=== PATIENT | male | born 1945 | race Caucasian/White ===

== ENCOUNTER 2020-08-07 17:30 | Inpatient (IN) | payer OTHER ==
[~2020-08-07] VITALS: Ht 165.1 cm; Wt 91.2 kg
--- NOTE | 2020-08-07 17:45 | NUR ---
FOUND ON GROUND AT HOME BY [employer] DURING WELLNESS CHECK. PATIENT A/OX4, BREATHING EVEN AND UNLABORED. NO SOB NOTED, NEEDS ATTENDED. KEPT COMFORTABLE. ATTACHED TO THE BULK FOLDER.
[2020-08-07 19:00] LABS: BASOPHILS % (AUTO) 0.1 % (0.0-2.0); EOSINOPHILS % (AUTO) 0.6 % (0.0-6.0); HEMATOCRIT 41 % (39-51); HEMOGLOBIN 12.8 g/dL (13.5-17.5); LYMPHOCYTES # (AUTO) 1.8 /CMM (0.8-4.8); LYMPHOCYTES % (AUTO) 8.4 % (20.0-44.0); MEAN CORPUSCULAR HGB CONC 32 g/dl (31.0-36.0); MEAN CORPUSCULAR VOLUME 90 fL (80-96); MONOCYTES # (AUTO) 0.7 /CMM (0.1-1.30); MONOCYTES % (AUTO) 3.2 % (2.0-12.0); NEUTROPHILS % (AUTO) 87.7 % (43.0-81.0); PLATELET COUNT (AUTO) 206 /CMM (150-450); RED BLOOD CELL COUNT(AUTO) 4.52 MIL/uL (4.5-6.0); WHITE BLOOD COUNT (AUTO) 21.7 K/uL (4.3-11.0)
[2020-08-07] MEDS ORDERED: ACET-868 PO (19:08)
[2020-08-07] MEDS ORDERED: LORA-258 PO (19:08)
[2020-08-07] MEDS ORDERED: ASPI-1169 PO (19:08)
[2020-08-07] MEDS ORDERED: ATOR40TA PO (19:08)
[2020-08-07] MEDS ORDERED: SERT100T12 PO (19:08)
[2020-08-07] MEDS ORDERED: LOSA100T31 PO (19:08)
[2020-08-07] MEDS ORDERED: ZOLP12.542 PO (19:08)
[2020-08-07 19:54] LABS: CALCIUM, SERUM 8.7 mg/dL (8.5-10.1); POTASSIUM 3.3 mmol/L (3.5-5.1)
[2020-08-07 19:58] LABS: ALCOHOL, BLOOD < 3 mg/dL (0-0); MAGNESIUM 2.2 mg/dL (1.8-2.4)
[2020-08-07 19:59] LABS: ALBUMIN 2.9 g/dL (3.4-5.0); BILIRUBIN,DIRECT 0.3 mg/dL (0.0-0.2); TOTAL PROTEIN, SERUM 7.3 g/dL (6.4-8.2)
[2020-08-07 20:02] LABS: CREATINE KINASE, TOTAL 988 U/L (39-308)
--- NOTE | 2020-08-07 20:07 | NUR ---
CALL FROM LAB, RAPID COVID NEGATIVE.
[2020-08-07] MEDS ORDERED: PIPERACILLIN /TAZOBACTAM 3.375 G in IV D5W 50 ML IV ONE (20:30)
[2020-08-07] MEDS ORDERED: IV NS 0.9% 1,000 ML IV ONE (20:30)
[2020-08-07] MEDS ORDERED: PANTOPRAZOLE 40 MG VIAL IV ONE (21:00)
[2020-08-07] MEDS ORDERED: ASPIRIN 325 MG TABLET PO ONE (21:00)
[2020-08-07] MEDS ORDERED: ENOXAPARIN SODIUM 30 MG/0.3 ML DISP.SYRIN SQ ONE (21:00)
[2020-08-07] MEDS ORDERED: ASPIRIN 325 MG TABLET ONE (21:26)
[2020-08-07] MEDS ORDERED: PANTOPRAZOLE 40 MG VIAL ONE (21:26)
[2020-08-07] MEDS ORDERED: POTASSIUM CL. PREMIX PERIPHER. 100 ML ONE (21:26)
[2020-08-07] MEDS ORDERED: ENOXAPARIN SODIUM 100 MG/ML DISP.SYRIN SQ ONE (21:26)
[2020-08-07] MEDS: POTASSIUM CL. PREMIX PERIPHER. 50 ML IV SCH ×2 (21:43→22:45)
[2020-08-07] MEDS ORDERED: PIPERACILLIN /TAZOBACTAM 3.375 G VIAL IV ONE (21:50)
[2020-08-07] MEDS ORDERED: LORAZEPAM 0.5 MG TABLET PO PRN (22:00)
[2020-08-07] MEDS ORDERED: ONDANSETRON HCL/PF 4 MG/2 ML VIAL IVP PRN (22:00)
[2020-08-07] MEDS ORDERED: Z GUARD REMEDY 2 OZ OINT TP PRN (22:00)
[2020-08-07] MEDS ORDERED: MAG HYDROX/AL HYDROX/SIMETH 30 ML UDC PO PRN (22:00)
[2020-08-07] MEDS ORDERED: MAGNESIUM HYDROXIDE 30 ML UDC PO PRN (22:00)
[2020-08-07] MEDS ORDERED: HYDROCODONE/APAP 5/325MG TABLET PO PRN (22:00)
--- NOTE | 2020-08-07 22:15 | NUR ---
MS RN NOTE: Received report from ACOUSTICAL ENGINEERLino MEDINA.
--- NOTE | 2020-08-07 22:16 | NUR ---
REPORT GIVEN TO CAROL DAVIS FOR JAZMIN PT WILL BE TRANSPORTED 3RD FLOOR
[2020-08-07 22:45] VITALS: BP 125/65
--- NOTE | 2020-08-07 22:45 | NUR ---
pt transported to 3rd floor
--- NOTE | 2020-08-07 22:45 | NUR ---
SPECIAL EDUCATION EDUCATIONAL ASSISTANT ADMITTING NOTE: Received patient in [facility] awake, alert, and oriented x4. Patient able to make needs known. Patient has generalized weakness. Noted right hip wound, right elbow wound, and upper extremity skin discoloration. Patient on room air and breathing well; no SOB or acute respiratory distress noted. IV access noted on left arm 20 gauge, dry and intact, patent, no redness or infiltration. Noted IV access on left AC, 20 gauge, dry and intact, patent, no redness or infiltration. Received patient with Potassium infusing. Safety precaution is in place, bed is in the lowest level, bed is locked, alarm is on, side rails x2 are up, and call light is within reach. Will continue to monitor.
[2020-08-07] MEDS: ATORVASTATIN 40 MG TABLET PO SCH (23:10)
[2020-08-07 23:28] VITALS: BP 125/65
[2020-08-08] VITALS: BP 128/68
[2020-08-08 00:27] LABS: APPEARANCE,URINE CLOUDY (CLEAR); BILIRUBIN,URINE SMALL (NEGATIVE); BLOOD, URINE LARGE Ery/uL (NEGATIVE); COLOR,URINE YELLOW (YELLOW); KETONES,URINE 15 (NEGATIVE); LEUKOCYTE ESTERASE ,URINE TRACE (NEGATIVE); NITRITE, URINE NEGATIVE (NEGATIVE); PH,URINE 8.5 (5.0-8.0); PROTEIN,URINE 30 mg/dl (NEGATIVE); UGLUCOSE NEGATIVE (NEGATIVE)
[2020-08-08] MEDS: TEMAZEPAM 15 MG CAPSULE PO PRN (00:31)
[2020-08-08] MEDS: ACETAMINOPHEN 325 MG TABLET PO PRN ×2 (00:31→21:20)
--- NOTE | 2020-08-08 00:31 | NUR ---
MS RN NOTE: Patient complains of generalized pain. Patient rates pain a 3 on a 0-10 scale and describes it as aching. Administered PRN Tylenol per MD order. Patient also complains of difficulty sleeping. Administered PRN Restoril per MD order. Will continue to monitor.
[2020-08-08 01:10] LABS: BACTERIA,URINE Many /HPF (None Seen); SQUAMOUS EPITHELIAL CELL,UR Moderate /HPF (None Seen)
[2020-08-08 01:11] LABS: TRIPLE PHOSPHATE CRYSTAL,UR Many /HPF (None Seen)
[2020-08-08 04:00] VITALS: BP 134/76
[2020-08-08] MEDS ORDERED: PIPERACILLIN /TAZOBACTAM 3.375 G VIAL IV ONE (04:53)
[2020-08-08] MEDS: IV NS 0.9% 1,000 ML IV PRN ×2 (04:56→21:34)
[2020-08-08] MEDS ORDERED: PIPERACILLIN /TAZOBACTAM 3.375 G in IV D5W 50 ML IV ONE (05:00)
[2020-08-08] MEDS ORDERED: PIPERACILLIN /TAZOBACTAM 3.375 G in IV D5W 50 ML IV SCH (05:00)
--- NOTE | 2020-08-08 06:40 | NUR ---
ESTIMATING MANAGER CLOSING NOTE: Patient in bed sleeping comfortably. All needs met. Patient breathing well with no SOB or respiratory distress. Safety precaution in place, bed is in the lowest level, alarm is on, brakes are on, side rails x2 are up, and call light is within reach. Will endorse to next shift.
[2020-08-08 06:45] LABS: BASOPHILS % (AUTO) 0.2 % (0.0-2.0); EOSINOPHILS % (AUTO) 0.7 % (0.0-6.0); HEMATOCRIT 35 % (39-51); HEMOGLOBIN 11.2 g/dL (13.5-17.5); LYMPHOCYTES # (AUTO) 0.9 /CMM (0.8-4.8); MEAN CORPUSCULAR HGB CONC 32 g/dl (31.0-36.0); MEAN CORPUSCULAR VOLUME 88 fL (80-96); MONOCYTES # (AUTO) 0.3 /CMM (0.1-1.30); MONOCYTES % (AUTO) 1.2 % (2.0-12.0); NEUTROPHILS # (AUTO) 20.8 /CMM (1.8-8.9); NEUTROPHILS % (AUTO) 93.9 % (43.0-81.0); PLATELET COUNT (AUTO) 218 /CMM (150-450); RED BLOOD CELL COUNT(AUTO) 3.92 MIL/uL (4.5-6.0); WHITE BLOOD COUNT (AUTO) 22.1 K/uL (4.3-11.0)
[2020-08-08 06:56] LABS: THYROID STIMULATING HORMONE 2.118 uIU/mL (0.358-3.74)
[2020-08-08 06:57] LABS: CALCIUM, SERUM 7.6 mg/dL (8.5-10.1); CREATININE 1.1 mg/dL (0.6-1.3); MAGNESIUM 2.1 mg/dL (1.8-2.4); PHOSPHORUS 2.3 mg/dL (2.5-4.9)
--- NOTE | 2020-08-08 07:50 | NUR ---
MS RN OPENING NOTES RECEIVED PATIENT RESTING IN BED, AWAKE, A/OX4 ON TELE MONITOR WITH SR W/PAC,PVC. ON RA WITH NO C/O SOB, NO ACUTE RESPIRATORY DISTRESS NOTED. C/O OF SLIGHT JORDAN. URINAL AT BEDSIDE. SKIN WITH MULTIPLE SKIN ABRASIONS, WOUND CONSULT ORDERED. IV TO LTAC AND LT ARM BOTH #20G RUNNING 0.9%NS @100ML/HR. BED AT LOWEST POSITION, LOCKED WITH SIDE RAILS UP X2 AND CALL LIGHT WITH IN REACH. WILL CONTINUE TO MONITOR PATIENT THROUGHOUT SHIFT.
[2020-08-08 08:00] VITALS: BP 108/60
[2020-08-08] MEDS: ASPIRIN 81 MG TAB.CHEW PO SCH (08:35)
[2020-08-08] MEDS: SERTRALINE HCL 50 MG TABLET PO SCH (08:37)
[2020-08-08] MEDS: LOSARTAN POTASSIUM 50 MG TABLET PO SCH (08:37)
[2020-08-08 08:40] LABS: EOSINOPHILS % (MANUAL) 1 % (0-4); LYMPHOCYTES % (MANUAL) 5 % (16-48); MONOCYTES % (MANUAL) 2 % (0-11.0); NEUTROPHILS % (MANUAL) 92 (42-76)
[2020-08-08] MEDS ORDERED: ENOXAPARIN SODIUM 100 MG/ML DISP.SYRIN SQ SCH (09:00)
[2020-08-08] MEDS: PIPERACILLIN /TAZOBACTAM 3.375 G in IV D5W 100 ML IV SCH ×2 (10:13→17:58)
[2020-08-08] MEDS: POTASSIUM CHLORIDE 20 MEQ TAB.PRT.SR PO SCH ×3 (10:13→12:07)
[2020-08-08] MEDS: NEUTRA PHOS 1 POWD.PACKET PO SCH ×2 (10:13→17:58)
[2020-08-08 16:00] VITALS: BP 115/59
--- NOTE | 2020-08-08 18:43 | NUR ---
FRESH WORK INSPECTOR CLOSING NOTES PATIENT RESTING IN BED, A/OX4 ON TELE MONITOR WITH SR W/PAC,PVC. ON RA WITH NO C/O SOB, NO ACUTE RESPIRATORY DISTRESS NOTED. IV TO LT AC AND LT ARM BOTH #20G RUNNING 0.9%NS @100ML/HR. BED AT LOWEST POSITION, LOCKED WITH SIDE RAILS UP X2 AND CALL LIGHT WITH IN REACH. PT AWAITING TRANSFER, WILL ENDORSE TO ONCOMING SHIFT.
--- NOTE | 2020-08-08 19:30 | NUR ---
Opening Notes: Report received from morning RN. Patient alert, awake, and oriented x4. Patient able to make needs known. No s/s of distress or discomfort. Patient on telemetry with sinus rhythm. Patient noted with right hip and right elbow laceration, left elbow scratch, and discoloration on bilateral upper extremities s/p fall at home. Patient denies any pain, no facial grimacing or moaning noted. 20:33 Spoke with Ruslan, Breastfeeding Program Coordinator from [facility] ([phone]). Per Ruslan, patient will be transferred to [facility] tomorrow and will call us back tomorrow to verify. Patient assisted with ADLs, kept clean, warm, and dry. Linens changed, good pericare provided. Fall precautions observed. Bed locked and in lowest position. Call light within easy reach.
[2020-08-08 20:00] VITALS: BP 112/64
--- NOTE | 2020-08-08 21:00 | NUR ---
RN NOTES PT. HAS TEMP OF 100.2- TYLENOL 650MG PO GIVEN ORDERED
[2020-08-08] MEDS: ATORVASTATIN 40 MG TABLET PO SCH (21:20)
[2020-08-09] MEDS: PIPERACILLIN /TAZOBACTAM 3.375 G in IV D5W 100 ML IV SCH ×3 (02:18→17:25)
[2020-08-09 04:00] VITALS: BP_SYST 118; BP_DIAS 64; BP_DIAS 74
[2020-08-09] MEDS: ACETAMINOPHEN 325 MG TABLET PO PRN (04:25)
--- NOTE | 2020-08-09 04:25 | NUR ---
RN NOTES COMPLAINED OF BACK PAIN AND ASKED FOR TYLENOL, TYLENOL 650MG PO GIVEN ORDERED
[2020-08-09 06:26] LABS: BASOPHILS % (AUTO) 0.2 % (0.0-2.0); EOSINOPHILS % (AUTO) 1.7 % (0.0-6.0); HEMATOCRIT 30 % (39-51); HEMOGLOBIN 9.6 g/dL (13.5-17.5); LYMPHOCYTES # (AUTO) 1.2 /CMM (0.8-4.8); LYMPHOCYTES % (AUTO) 7.3 % (20.0-44.0); MEAN CORPUSCULAR HGB CONC 32 g/dl (31.0-36.0); MEAN CORPUSCULAR VOLUME 88 fL (80-96); MONOCYTES # (AUTO) 0.8 /CMM (0.1-1.30); MONOCYTES % (AUTO) 4.8 % (2.0-12.0); NEUTROPHILS # (AUTO) 14.7 /CMM (1.8-8.9); PLATELET COUNT (AUTO) 216 /CMM (150-450); RED BLOOD CELL COUNT(AUTO) 3.35 MIL/uL (4.5-6.0); WHITE BLOOD COUNT (AUTO) 17.1 K/uL (4.3-11.0)
--- NOTE | 2020-08-09 06:32 | NUR ---
Closing Notes: Patient alert, and oriented x4. Eyes closed, resting comfortably but easily arousable. No s/s of distress, or discomfort noted, no c/o pain at this time. Patient assisted with ADLs. Patient kept clean and dry. Linens changed, good pericare provided. Needs anticipated and attended. Bed locked and in lowest position. Fall precautions observed. Call light within easy reach. VS WNL.
[2020-08-09 06:59] LABS: ALBUMIN 1.9 g/dL (3.4-5.0); BILIRUBIN,TOTAL 0.5 mg/dL (0.2-1.0); CALCIUM, SERUM 7.4 mg/dL (8.5-10.1); PHOSPHORUS 2.6 mg/dL (2.5-4.9); POTASSIUM 3.3 mmol/L (3.5-5.1); TOTAL PROTEIN, SERUM 5.3 g/dL (6.4-8.2)
--- NOTE | 2020-08-09 07:48 | NUR ---
BRAND STRATEGIST OPENING NOTES BEDSIDE ENDORSEMENT DONE. PATIENT IS IN BED, AWAKE AND VERBALLY RESPONSIVE. A/O X4, ABLE TO MAKE NEEDS KNOWN. BREATHING EVEN AND UNLABORED, TOLERATING ROOM AIR. ON TELE MONITORING, READING OF SR, HR AT 70'S, NO CARDIAC DISTRESS. IV LINE ON LAC #20 AND LEFT ARM #20 INTACT AND PATENT, IVF OF NS @100ML/HR, INFUSING WELL. SAFETY PRECAUTIONS IN PLACE: BED LOCKED AND ON LOWEST POSITION, SR UP X2, CALL LIGHT W/IN REACH. WILL MONITOR ACCORDINGLY.
[2020-08-09 08:00] VITALS: BP 118/47
[2020-08-09] MEDS: ASPIRIN 81 MG TAB.CHEW PO SCH (08:29)
[2020-08-09] MEDS: SERTRALINE HCL 50 MG TABLET PO SCH (08:29)
[2020-08-09] MEDS: LOSARTAN POTASSIUM 50 MG TABLET PO SCH (08:30)
[2020-08-09] MEDS: ENOXAPARIN SODIUM 40 MG/0.4 ML DISP.SYRIN SQ SCH (08:31)
--- NOTE | 2020-08-09 09:00 | NUR ---
RN NOTES RECEIVED CALL FROM [facility] OF [facility] W/ PATIENT'S [facility] RESULT OF 13.5. DR. HUGHES IS IN THE UNIT, MADE AWARE OF CKMB RESULT.
[2020-08-09] MEDS: POTASSIUM CHLORIDE 20 MEQ TAB.PRT.SR PO SCH ×3 (10:01→11:00)
[2020-08-09 11:08] LABS: FERRITIN 279 ng/mL (8-388)
--- NOTE | 2020-08-09 11:23 | NUR ---
WOUND CARE CONSULT: PT PRESENTS WITH AREAS OF SKIN DISCOLORATION, DRY ABRASIONS, DRY SCAB TO RT RIB AREA AND RT ELBOW AND DEEP TISSUE INJURY IN EVOLUTION TO RT HIP AREA, PRESENT ON ADMISSION. RECOMMENDATIONS MADE FOR WOUND CARE AND SKIN PROTECTION. DISCUSSED WITH NURSING STAFF. PT TO BE PLACED ON [place] ISOFLEX LOW AIRLOSS BED. IN AGREEMENT WITH PLAN OF CARE. Addendum: 08/09/20 at 1124 by LATASHA GUERRERO WNDNU Amended: Links added.
--- NOTE | 2020-08-09 11:24 | NUR ---
RN NOTES PATIENT WAS SEEN BY WOUND NURSE W/ RECOMMENDATIONS NOTED FOR R ELBOW SCAB AND R HIP DTI.
[2020-08-09 11:31] LABS: IRON, SERUM 8 ug/dl (50-175); TOTAL IRON BINDING CAPACITY 185 ug/dl (250-450)
[2020-08-09] MEDS: MORPHINE SULFATE INJ 2 MG/ML DISP.SYRIN IV PRN ×2 (13:09→19:40)
--- NOTE | 2020-08-09 14:03 | NUR ---
RN NOTES ASKED PATIENT IF IT'S OKAY TO TAKE PHOTO OF WOUNDS BUT PATIENT REFUSED AT THIS TIME. HOWEVER, HE IS OKAY WITH DOING THE TREATMENT ON THEM. WOUND TREATMENT DONE TO SITES IDENTIFIED BY WOUND NURSE.
[2020-08-09] MEDS: IV NS 0.9% 1,000 ML IV PRN (15:17)
[2020-08-09 16:00] VITALS: BP 104/61
--- NOTE | 2020-08-09 18:57 | NUR ---
PIPE FINISHER CLOSING NOTES PATIENT IS IN BED RESTING, EASILY AWAKENED, VERBALLY RESPONSIVE. A/O X4, ABLE TO MAKE NEEDS KNOWN. BREATHING EVEN AND UNLABORED, TOLERATING ROOM AIR. ON TELE MONITORING, READING OF SR, HR AT MID 70'S, NO CARDIAC DISTRESS. IV LINE ON LAC #20, INTACT AND PATENT, IVF OF NS @100ML/HR, INFUSING WELL. SAFETY PRECAUTIONS MAINTAINED: BED LOCKED AND ON LOWEST POSITION, SR UP X2, CALL LIGHT W/IN REACH. WILL ENDORSE TO SHAFTING CLEANER RN FOR JAZMIN.
--- NOTE | 2020-08-09 19:32 | NUR ---
PUT IN BEAT ADJUSTER OPENING NOTES PATIENT RECEIVED RESTING IN BED COMFORTABLY; A/OX4, BREATHING EVEN AND UNLABORED; NO SOB NOTED; NO DISTRESS NOTED; PER AM SHIFT, POSSIBLE TRANSFER TO [place] AWAITING [place] TO CALL BACK WHEN BED IS AVAILABLE; PER AM SHIFT, PATIENT REFUSING PICTURES TO BE TAKEN; WILL ATTEMPT; L FA # 20 L AC#20 INTACT AND PATENT, FLUSHING WELL; SAFETY PRECAUTIONS IMPLEMENTED; BED LOCKED IN LOW POSITION; SIDE RAILSX2; CALL LIGHT WITHIN REACH; WILL CONT TO MONITOR
[2020-08-09 20:00] VITALS: BP 108/60
[2020-08-09 20:06] VITALS: BP 108/60
--- NOTE | 2020-08-09 21:04 | NUR ---
SUPERVISOR MAINSPRING FABRICATION NOTES SPOKE WITH ZOIE, CONSTRUCTION CONTRACTOR FROM [facility]; PER ZOIE, UNABLE TO TRANSFER PATIENT OUT TONIGHT; WILL FOLLOW UP WITH AM SHIFT; CHARGE NURSE AWARE; WILL CONT TO MONITOR Addendum: 08/09/20 at 2244 by LORENA BOUCHER RN PER ZOIE, AWAITING TO [facility] TRANSFER; SPOKE WITH CARMINE CASE MANAGEMENT FROM [facility], PER CARMINE, PATIENT HAS BEEN PENDING TRANSFER FOR 2 DAYS ALREADY; CHARGE NURSE AWARE; WILL INFORM DAY SHIFT AND CONT TO MONITOR PATIENT
[2020-08-09] MEDS: ATORVASTATIN 40 MG TABLET PO SCH (21:17)
[2020-08-09] MEDS: TEMAZEPAM 15 MG CAPSULE PO PRN (23:22)
[2020-08-10] VITALS (8 sets, daily range): BP systolic 108–160; BP diastolic 54–73
[2020-08-10] MEDS: PIPERACILLIN /TAZOBACTAM 3.375 G in IV D5W 100 ML IV SCH ×3 (01:01→17:26)
--- NOTE | 2020-08-10 06:39 | NUR ---
WINDOWS SYSTEMS ADMINISTRATOR CLOSING NOTES PATIENT RESTING IN BED COMFORTABLY; A/OX3-4, ON 2LPM VIA NC, TOLERATING WELL; PATIENT REQUESTED 2LPM VIA NC WHILE SLEEPING; PATIENT REPORTED CHEST PAIN D/T MULTIPLE RIB FRACTURES; TELE MONITOR READS SR; R HAND #22 INTACT AND PATENT; TOLERATING IVF WELL; ALL NEEDS RENDERED; SAFETY PRECAUTIONS IMPLEMENTED; BED LOCKED IN LOW POSITION; SIDE RAILSX2; CALL LIGHT WITHIN REACH; AWAITING CONFIRMATION OF TRANSFER PER CASE MANAGEMENT [place]; WILL ENDORSE JAZMIN TO ONCOMING SHIFT
--- NOTE | 2020-08-10 07:05 | NUR ---
APPLIED PSYCHOLOGY CHAIR OPENING NOTES RECEIVED PT ON BED, AAOX4, ABLE TO MAKE NEEDS KNOWN. RESPIRATION EVEN AND UNLABORED WITH NO ACUTE RESPIRATORY DISTRESS, ON O2 AT 2LPM DUE TO CHEST DISCOMFORT R/T RIB FX.DENIES PAIN AND DISCOMFORT. SKIN WARM TO TOUCH AND DRY. ABD SOFT AND NON DISTENDED WITH ACTIVE BOWEL SOUNDS. BLE +1 IV SITE AT RIGHT HAND #22, PATENT IN FLUSHING ON NS AT 100 ML/HR. TELE MONITOR SHOWS SR 70 WITH EPISODES OF PAC AND ST DEP. CALL LIGHT WITHIN REACH, BED IN LOW LOCKED POSITION, SR X2 UP FOR SAFETY. WILL CONT TO MONITOR CARE.
[2020-08-10 07:40] LABS: BASOPHILS % (AUTO) 0.1 % (0.0-2.0); EOSINOPHILS % (AUTO) 2.7 % (0.0-6.0); HEMATOCRIT 29 % (39-51); HEMOGLOBIN 9.2 g/dL (13.5-17.5); LYMPHOCYTES # (AUTO) 1.5 /CMM (0.8-4.8); LYMPHOCYTES % (AUTO) 11.8 % (20.0-44.0); MEAN CORPUSCULAR HGB CONC 32 g/dl (31.0-36.0); MEAN CORPUSCULAR VOLUME 88 fL (80-96); MONOCYTES # (AUTO) 0.9 /CMM (0.1-1.30); MONOCYTES % (AUTO) 6.9 % (2.0-12.0); NEUTROPHILS # (AUTO) 10.1 /CMM (1.8-8.9); NEUTROPHILS % (AUTO) 78.5 % (43.0-81.0); PLATELET COUNT (AUTO) 248 /CMM (150-450); RED BLOOD CELL COUNT(AUTO) 3.27 MIL/uL (4.5-6.0); WHITE BLOOD COUNT (AUTO) 12.9 K/uL (4.3-11.0)
[2020-08-10 07:49] LABS: CALCIUM, SERUM 7.8 mg/dL (8.5-10.1); CREATININE 0.9 mg/dL (0.6-1.3); MAGNESIUM 2.1 mg/dL (1.8-2.4); PHOSPHORUS 2.9 mg/dL (2.5-4.9); POTASSIUM 3.5 mmol/L (3.5-5.1)
[2020-08-10] MEDS: SERTRALINE HCL 50 MG TABLET PO SCH (08:14)
[2020-08-10] MEDS: ASPIRIN 81 MG TAB.CHEW PO SCH (08:14)
[2020-08-10] MEDS: MORPHINE SULFATE INJ 2 MG/ML DISP.SYRIN IV PRN ×2 (08:15→20:27)
[2020-08-10] MEDS: LOSARTAN POTASSIUM 50 MG TABLET PO SCH (08:17)
[2020-08-10] MEDS: ENOXAPARIN SODIUM 40 MG/0.4 ML DISP.SYRIN SQ SCH (08:19)
[2020-08-10] MEDS: SOD FERRIC GLUC 125 MG in IV NS 0.9% 100 ML IV SCH (13:32)
--- NOTE | 2020-08-10 17:42 | NUR ---
ARCHITECTURAL REPRESENTATIVE NOTES PER CM,NO AVAILABLE BEDS YET AT [facility]. ALL RECORDS FAXED. MD TO MD REPORT GIVEN. PT AWARE
--- NOTE | 2020-08-10 19:00 | NUR ---
SEWING PATTERN LAYOUT TECHNICIAN CLOSING NOTES PT AAOX3, ABLE TO MAKE NEEDS KNOWN. NO PRESENCE OF ACUTE RESPIRATORY DISTRESS, ON CONTINUOUS O2, AT 2LPM, KVNG WELL, DENIES SOB. PT DENIES PAIN.PROVIDED TX ORDERED TO SKIN. IV SITE PATENT IN FLUSHING AT RIGHT FA #22 RUNNING ZOSYN ATB AND NS AT 100ML/HR. TELE MONITOR SHOWS SR 78. ALL CONCERNS ATTENDED. WAITING FOR BED AVAILABILITY AT [facility]. CALL LIGHT WITHIN REACH. ENDORSED CARE TO NEXT SHIFT.
--- NOTE | 2020-08-10 19:15 | NUR ---
FORENSIC SCIENCE EXAMINER NOTES RECEIVED ON BED A/O X3-4,BREATHING NON LABORED,O2 IN USED AT 2L/NC TO KEEP O2 SAT ABOVE 90%.SALINE LOCK RFA INTACT AND PATENT,NS 100ML/HR RATE IN PROGRESS VIA IV PUMP,SITE PATENT.NO S/S OF INFILTRATION NOTED.CALL LIGHT IN REACH,NEEDS ANTICIPATED,AWAITING ROOM AT [facility],WITH DISCHARGE ORDER.
--- NOTE | 2020-08-10 20:27 | NUR ---
BOX CHIPPER NOTES PAIN MANAGEMENT C/O LEFT SHOULDER PAIN,MEDICATED WITH MORPHINE 2MG IV ORDERED,FOR SEVERE PAIN
[2020-08-10] MEDS: TEMAZEPAM 15 MG CAPSULE PO PRN (22:08)
[2020-08-10] MEDS: ATORVASTATIN 40 MG TABLET PO SCH (22:08)
--- NOTE | 2020-08-10 22:08 | NUR ---
CORRECTION OFFICER SUPERVISOR NOTES C/O INSOMNIA,RESTORIL 15MG PO GIVEN ORDERED.
[2020-08-11] VITALS: BP 110/62
[2020-08-11 00:21] VITALS: BP 110/62
[2020-08-11] MEDS: PIPERACILLIN /TAZOBACTAM 3.375 G in IV D5W 100 ML IV SCH ×3 (01:12→18:00)
[2020-08-11 04:00] VITALS: BP 117/62
--- NOTE | 2020-08-11 06:23 | NUR ---
DEEP FRYER ASSEMBLER NOTES SLEPT WELL WITH RESTORIL,DRESSING CHANGE DONE RIGHT THE UPPER THIGH.DUE MEDS ADMINISTERED.FOR DISCHARGE/TRANSFER TO [place],AWAITING FOR BED.IN NO ACUTE DISTRESS.WILL ENDORSE TO DAY NURSE FOR JAZMIN.
--- NOTE | 2020-08-11 07:30 | NUR ---
TELE/RN OPENING NOTE Patient resting in bed, A&O x 3-4. No complaints of pain/discomfort at this time. Breathing even and non-labored on 2L oxygen via NC, no SOB noted. No cardiac distress noted. On tele monitor, reading SR 78. IV access noted on R FA #22 gauge, patent and intact, and running NS @ 100 ml/hr. Sensation from all peripheral extremities intact. Bed locked to its lowest position, side rails x 2 up, call light in hand. Will continue with current medical management.
[2020-08-11 08:00] VITALS: BP 135/83
[2020-08-11] MEDS: SERTRALINE HCL 50 MG TABLET PO SCH (08:27)
[2020-08-11] MEDS: ASPIRIN 81 MG TAB.CHEW PO SCH (08:27)
[2020-08-11] MEDS: ENOXAPARIN SODIUM 40 MG/0.4 ML DISP.SYRIN SQ SCH (08:28)
[2020-08-11] MEDS: LOSARTAN POTASSIUM 50 MG TABLET PO SCH (08:34)
[2020-08-11 12:00] VITALS: BP 138/76
[2020-08-11] MEDS: MORPHINE SULFATE INJ 2 MG/ML DISP.SYRIN IV PRN (13:14)
[2020-08-11] MEDS: SOD FERRIC GLUC 125 MG in IV NS 0.9% 100 ML IV SCH (14:40)
[2020-08-11 16:00] VITALS: BP 126/70
--- NOTE | 2020-08-11 19:54 | NUR ---
TELE/SAMPLE PREP TECHNICIAN NOTES Patient remained stable throughout the rest of the shift. VSS, afebrile, no respiratory or cardiac distress noted. No complaints of pain/discomfort noted. Breathing even and non-labored on 2L oxygen via NC. Removed tele leads and monitor. IV access removed on R FA #22 with catheter intact, placed clean dry dressing and taped it on site. No s/s of infiltration, bleeding, or infection noted. Sensation from all peripheral extremities intact. Skin assessment done, photos of skin impairments placed in chart. Educated patient and gave report to Brianna MEDINA from [facility] regarding discharge instructions, answered all their questions to their satisfaction. Patient left safely with 2 vendor representatives via ambulance along with all his hospital documents and belongings.
== END 2020-08-11 19:50 | DRG 280 ==
LOC: ER 17:41 → TELE 22:25
PROVIDERS: ADMIT Nurse Practitioner Acute Care; ATTEND Nurse Practitioner Acute Care
DX: I48.91 Unspecified atrial fibrillation (principal); J15.9 Unspecified bacterial pneumonia; I21.A1 Myocardial infarction type 2; N17.0 Acute kidney failure with tubular necrosis; M62.82 Rhabdomyolysis; E44.1 Mild protein-calorie malnutrition; S22.42XA Multiple fractures of ribs, left side, initial encounter for closed fracture; N20.1 Calculus of ureter; I48.92 Unspecified atrial flutter; E86.0 Dehydration; E78.5 Hyperlipidemia, unspecified; E87.6 Hypokalemia; Z79.82 Long term (current) use of aspirin; Z79.899 Other long term (current) drug therapy; F32.9 Major depressive disorder, single episode, unspecified; I25.10 Atherosclerotic heart disease of native coronary artery without angina pectoris; F03.90 Unspecified dementia, unspecified severity, without behavioral disturbance, psychotic disturbance, mood disturbance, and anxiety; R74.8 Abnormal levels of other serum enzymes; I70.0 Atherosclerosis of aorta; E66.9 Obesity, unspecified; Z82.49 Family history of ischemic heart disease and other diseases of the circulatory system; E83.39 Other disorders of phosphorus metabolism; I10 Essential (primary) hypertension; W19.XXXA Unspecified fall, initial encounter; Y92.9 Unspecified place or not applicable; K44.9 Diaphragmatic hernia without obstruction or gangrene; K29.80 Duodenitis without bleeding; Z68.31 Body mass index [BMI] 31.0-31.9, adult
CPT/HCPCS: 36415; 70450-TC; 71045-TC; 72125-TC; 80048-TC; 80053-TC; 80061-TC; 80076-TC; 81000-TC; 82550-TC; 82728-TC; 83540-TC; 83605-TC; 83735-TC; 84100-TC; 84443-TC; 84484-TC; 85025-TC; 85730-TC; 87040-TC; 87081-TC; 87086-TC; 87186-TC; 92526; 92611-TC; 93307-TC; 97530-TC; A6253; C9113; C9803; G0378; G0480; J1650; J2270; J2543; J2916; J3480; J7030; J7042; J7060